=== PATIENT | female | born 1950 | race Caucasian/White ===

== ENCOUNTER → 2017-04-28 | Emergency (ER) | payer MEDICARE ==
[~2017-04-28] VITALS: Ht 162.5 cm; Wt 77.1 kg
[~2017-04-28] MED LIST: AMBIEN10 MG PO; BENICAR40 MG PO; CYMBALTA60 M1 PO; DIOVAN40 MG PO; ESTROGEN PO; FENOFIBRATE PO; LOMOTIL 0.025 M1 TA1 PO; PENTASA500 MG PO; PREDNISONE5 MG PO; PREDNISONE50 MG PO; VICODIN 5/500 505 MG PO; ZOFRAN ODT4 MG PO
[2017-04-28 07:28] VITALS: BP 156/71
[2017-04-28 08:32] LABS: BASO # 0.1 10*3/uL (0.0-0.1); BASO % 0.6 % (0.0-1.0); EOS # 0.3 10*3/uL (0.0-0.4); HEMATOCRIT 34.5 % (37.0-47.0); LYMPH # 3.1 10*3/uL (1.3-4.4); LYMPH % 35.8 % (27.0-41.0); MEAN CELL VOLUME 89.1 fl (81.0-99.0); MEAN CORPUSCULAR HGB 28.4 pg (27.0-31.0); MEAN CORPUSCULAR HGB CONC 31.9 g/dl (33.0-37.0); MEAN PLATELET VOLUME 8.8 fl (9.6-12.3); MONO # 0.6 10*3/uL (0.1-1.0); MONO % 7.3 % (3.0-9.0); NEUT # 4.5 10*3/uL (2.3-7.9); NEUT % 52.8 % (47.0-73.0); PLATELET COUNT AUTOMATED 388 10*3/uL (130-400); RED BLOOD COUNT 3.87 10*6/uL (4.10-5.10); RED CELL DISTRI WIDTH 13.8 % (0-14.5); WHITE BLOOD COUNT 8.5 10*3/uL (4.8-10.8)
[2017-04-28 08:44] LABS: INTERNATIONAL NORM RATIO 0.9 (2.0-3.5); PROTHROMBIN TIME 9.7 SECONDS (9.0-12.4)
[2017-04-28 09:02] LABS: ALBUMIN 3.8 gm/dl (3.1-4.5); ALKALINE PHOSPHATASE 41 U/L (45-117); BILIRUBIN, TOTAL 0.3 mg/dl (0.2-1.0); BUN 24 mg/dl (7-24); C-REACTIVE PROTEIN 0.49 MG/DL (0-0.3); CARBON DIOXIDE 27 mmol/L (21-32); CHLORIDE 101 mmol/L (98-107); CKMB 1.5 ng/ml (0.5-3.6); CPK 61 U/L (26-192); EST GLOM FILT AFRICAN AMERICAN 51 ml/min; GLUCOSE 101 mg/dL (65-99); MAGNESIUM 1.6 mg/dL (1.5-2.1); POTASSIUM 4.2 mmol/L (3.5-5.1); SGOT/AST 18 IU/L (3-35); SGPT/ALT 33 U/L (12-78); SODIUM 140 mmol/L (136-145)
[2017-04-28 09:03] LABS: TROPONIN I < 0.015 ng/ml (<0.045)
== END ==
LOC: ED 07:19
PROVIDERS: Emergency Medicine
DX: M54.12 Radiculopathy, cervical region (principal); R20.0 Anesthesia of skin; R51 Headache; R07.89 Other chest pain; E11.9 Type 2 diabetes mellitus without complications; I10 Essential (primary) hypertension; E78.5 Hyperlipidemia, unspecified; Z79.899 Other long term (current) drug therapy

== ENCOUNTER → 2017-06-04 | Outpatient (CLI) | payer MEDICARE ==
[2017-06-04 14:27] LABS: BILIRUBIN NEGATIVE (NEGATIVE); BLOOD NEGATIVE (NEGATIVE); CLARITY SL CLOUDY (CLEAR); COLOR YELLOW (YELLOW); GLUCOSE NEGATIVE (NEGATIVE); KETONE NEGATIVE (NEGATIVE); LEUKO ESTERASE NEGATIVE (NEGATIVE); NITRITE NEGATIVE (NEGATIVE); PROTEIN NEGATIVE (NEGATIVE); SPECIFIC GRAVITY <= 1.005 (1.005-1.030); UROBILINOGEN 0.2 E.U./dl (0.2-1.0)
[2017-06-04 14:29] LABS: BASO # 0.1 10*3/uL (0.0-0.1); BASO % 0.6 % (0.0-1.0); EOS # 0.2 10*3/uL (0.0-0.4); HEMATOCRIT 35.4 % (37.0-47.0); HEMOGLOBIN 11.1 g/dl (12.0-16.0); LYMPH # 2.9 10*3/uL (1.3-4.4); MEAN CELL VOLUME 88.7 fl (81.0-99.0); MEAN CORPUSCULAR HGB 27.8 pg (27.0-31.0); MEAN CORPUSCULAR HGB CONC 31.4 g/dl (33.0-37.0); MEAN PLATELET VOLUME 8.7 fl (9.6-12.3); MONO # 0.6 10*3/uL (0.1-1.0); MONO % 7.5 % (3.0-9.0); NEUT # 4.1 10*3/uL (2.3-7.9); NEUT % 52.4 % (47.0-73.0); PLATELET COUNT AUTOMATED 477 10*3/uL (130-400); RED BLOOD COUNT 3.99 10*6/uL (4.10-5.10); RED CELL DISTRI WIDTH 13.6 % (0-14.5); WHITE BLOOD COUNT 7.9 10*3/uL (4.8-10.8)
[2017-06-04 14:36] LABS: URINE TP/CRE RATIO 0.1 (<0.21)
[2017-06-04 14:38] LABS: BUN 16 mg/dl (7-24); CARBON DIOXIDE 30 mmol/L (21-32); CHLORIDE 98 mmol/L (98-107); EST GLOM FILT AFRICAN AMERICAN > 60 ml/min; GLUCOSE 100 mg/dL (65-99); PHOSPHOROUS 3.5 mg/dL (2.5-4.9); SODIUM 133 mmol/L (136-145)
[2017-06-04 14:47] LABS: BACTERIA 1+; EPITHELIAL CELLS 0-2; RBC 0-2 rbc/hpf (0-2); URINE REFLEX COMMENT NO (NO)
[2017-06-04 15:02] LABS: URINE OSMOLALITY 252 mOsm/kg (500-850)
[2017-06-04 15:39] LABS: VITAMIN D, 25-HYDROXY 40.7 ng/mL (30-100)
[2017-06-05 15:09] LABS: A/G RATIO 1.2 (0.7-1.7); ALBUMIN 3.7 g/dL (2.9-4.4); ALPHA-1-GLOBULIN 0.3 g/dL (0.0-0.4); BETA GLOBULIN 1.2 g/dL (0.7-1.3); GAMMA GLOBULIN 0.8 g/dL (0.4-1.8); GLOBULIN, TOTAL 3.1 g/dL (2.2-3.9); M-SPIKE Not Observed g/dL (Not Observed); TOTAL PROTEIN, SERUM 6.8 g/dL (6.0-8.5)
== END | disposition home or self-care (01) ==
LOC: LAB 13:42
PROVIDERS: Internal Medicine Nephrology
DX: E83.52 Hypercalcemia (principal); N17.9 Acute kidney failure, unspecified; Z79.899 Other long term (current) drug therapy

== ENCOUNTER 2017-08-05 21:28 | Emergency (ER) | payer MEDICARE ==
[~2017-08-05] VITALS: Ht 162.5 cm; Wt 86.2 kg
[2017-08-05 21:34] VITALS: BP 180/90
== END 2017-08-06 00:21 | disposition home or self-care (01) ==
LOC: ED 21:28
DX: G89.29 Other chronic pain (principal); M25.512 Pain in left shoulder; M19.112 Post-traumatic osteoarthritis, left shoulder

== ENCOUNTER → 2017-10-22 | Day surgery (SDC) | payer MEDICARE ==
[~2017-10-22] VITALS: Ht 162.5 cm; Wt 84.4 kg
[~2017-10-22] MED LIST changes: +METFORMIN500 MG PO
--- NOTE | ~2017-10-22 | O ---
[place], [place] OPERATIVE NOTE NAME: [facility] #: [id number] UNIT #: [id number] ROOM: DOCTOR: LISA LOPEZ MD BIRTHDATE: [birth year] DOS: 10/22/2017 PREOPERATIVE DIAGNOSIS: Cataract, right eye. POSTOPERATIVE DIAGNOSIS: Cataract, right eye. OPERATION: Extracapsular cataract extraction by phacoemulsification with posterior chamber intraocular lens implantation, right eye. ANESTHESIA: Monitored standby. OPERATIVE FINDINGS AND PROCEDURE: 2% Xylocaine topical anesthetic gel was applied to the eye in the preop area. The patient was taken to the operating room and prepped and draped in the standard fashion for sterile intraocular surgery. A time out procedure was performed verifying correct patient, correct site and corrects lens with Latricia Lopez M.D. The operating microscope was swung into position and the lid speculum was inserted. Using a Nella paracentesis blade, a paracentesis was made through clear cornea. Viscoelastic was used to fill the anterior chamber. Using a metal keratome a 2.4 mm self-sealing clear corneal cataract incision was made temporally at the limbus. Using a pre-bent 25 gauge cystotome needle, a standard continuous curvilinear capsulorrhexis was performed. The anterior capsule was removed with forceps. The lens nucleus was hydrodissected and phacoemulsified in the posterior chamber. Cortical material was removed with the irrigation aspiration hand piece and the posterior capsule was then polished with a curet under irrigation. The posterior chamber and capsular bag were filled with viscoelastic. A posterior chamber intraocular lens manufactured by: [employer], Model #[id number], and 24.0 diopters in strength were then inserted into the posterior chamber and within the capsular bag using the lens cartridge and injector system. Viscoelastic was removed using the irrigation aspiration handpiece. The anterior chamber was filled with balanced salt solution through the paracentesis. Both the paracentesis site and cataract incisions were hydrated with BSS and verified to be water-tight and self-sealing. Cefuroxime 1 mg/0.1 mL was injected into the anterior chamber through the paracentesis site. The incision checked to be water-tight using a Weck-Lashaun sponge. The integrity of the cataract wound and ocular tension were checked. Lid speculum and drapes were removed. The patient was transferred from the operating room to the recovery room in satisfactory condition. [place], [place] OPERATIVE NOTE NAME: [facility] UNIT #: [id number] ROOM: DOCTOR: LISA LOPEZ MD BIRTHDATE: [birth year] LISA LOPEZ MD CM:OPRECORD:OPERATIVE NOTE [id number] LISA LOPEZ MD 10/22/17 1028 interface
[2017-10-22 07:41] VITALS: BP 144/76
[2017-10-22 08:36] VITALS: BP 146/71
[2017-10-22 08:50] VITALS: BP 152/77
[2017-10-22 09:04] VITALS: BP 145/79
== END | disposition home or self-care (01) ==
LOC: SDC 10-17 14:00
DX: E11.36 Type 2 diabetes mellitus with diabetic cataract (principal); I10 Essential (primary) hypertension; F32.9 Major depressive disorder, single episode, unspecified; Z79.899 Other long term (current) drug therapy; Z88.8 Allergy status to other drugs, medicaments and biological substances; F41.9 Anxiety disorder, unspecified

== ENCOUNTER → 2017-12-03 | Day surgery (SDC) | payer MEDICARE ==
[~2017-12-03] VITALS: Ht 162.5 cm; Wt 86.2 kg
[~2017-12-03] MED LIST changes: +OMEPRAZOLE40 MG PO; +Percocet 325 MG1 TAB PO; +VALSARTAN-HCTZ1 EAC3 PO
--- NOTE | ~2017-12-03 | O ---
[place], [place] OPERATIVE NOTE NAME: [facility] #: [id number] UNIT #: [id number] ROOM: DOCTOR: LISA LOPEZ MD BIRTHDATE: [birth year] DOS: 12/03/2017 PREOPERATIVE DIAGNOSIS: Cataract, left eye. POSTOPERATIVE DIAGNOSIS: Cataract, left eye. OPERATION: Extracapsular cataract extraction by phacoemulsification with posterior chamber intraocular lens implantation, left eye. ANESTHESIA: Monitored standby. OPERATIVE FINDINGS AND PROCEDURE: 2% Xylocaine topical anesthetic gel was applied to the eye in the preop area. The patient was taken to the operating room and prepped and draped in the standard fashion for sterile intraocular surgery. A time out procedure was performed verifying correct patient, correct site and corrects lens with Latricia Lopez M.D. The operating microscope was swung into position and the lid speculum was inserted. Using a Nella paracentesis blade, a paracentesis was made through clear cornea. Viscoelastic was used to fill the anterior chamber. Using a metal keratome a 2.4 mm self-sealing clear corneal cataract incision was made temporally at the limbus. Using a pre-bent 25 gauge cystotome needle, a standard continuous curvilinear capsulorrhexis was performed. The anterior capsule was removed with forceps. The lens nucleus was hydrodissected and phacoemulsified in the posterior chamber. Cortical material was removed with the irrigation aspiration hand piece and the posterior capsule was then polished with a curet under irrigation. The posterior chamber and capsular bag were filled with viscoelastic. A posterior chamber intraocular lens manufactured by: [employer], Model #[id number], and 25.0 diopters in strength were then inserted into the posterior chamber and within the capsular bag using the lens cartridge and injector system. Viscoelastic was removed using the irrigation aspiration handpiece. The anterior chamber was filled with balanced salt solution through the paracentesis. Both the paracentesis site and cataract incisions were hydrated with BSS and verified to be water-tight and self-sealing. Cefuroxime 1 mg/0.1 mL was injected into the anterior chamber through the paracentesis site. The incision checked to be water-tight using a Weck-Lashaun sponge. The integrity of the cataract wound and ocular tension were checked. Lid speculum and drapes were removed. The patient was transferred from the operating room to the recovery room in satisfactory condition. [place], [place] OPERATIVE NOTE NAME: [facility]I [facility]UN[facility] UNIT #: [id number] ROOM: DOCTOR: LISA LOPEZ MD BIRTHDATE: [birth year] LISA LOPEZ MD CM:OPRECORD:OPERATIVE NOTE [id number] LISA LOPEZ MD 12/03/17 0948 interface
[2017-12-03 07:40] VITALS: BP 122/66
[2017-12-03 09:23] VITALS: BP 144/77
[2017-12-03 09:36] VITALS: BP 138/79
[2017-12-03 09:47] VITALS: BP 141/84
== END ==
LOC: SDC 11-21 09:30
DX: E11.36 Type 2 diabetes mellitus with diabetic cataract (principal); I10 Essential (primary) hypertension; K21.9 Gastro-esophageal reflux disease without esophagitis; F41.9 Anxiety disorder, unspecified; F32.9 Major depressive disorder, single episode, unspecified; Z98.51 Tubal ligation status; Z90.710 Acquired absence of both cervix and uterus; Z98.890 Other specified postprocedural states; Z79.84 Long term (current) use of oral hypoglycemic drugs; E78.00 Pure hypercholesterolemia, unspecified

== ENCOUNTER 2018-03-11 11:02 | Emergency (ER) | payer MEDICARE ==
[~2018-03-11] VITALS: Ht 162.5 cm; Wt 85.3 kg
[2018-03-11 11:40] LABS: BASO # 0.1 10*3/uL (0.0-0.1); BASO % 0.5 % (0.0-1.0); EOS # 0.2 10*3/uL (0.0-0.4); EOS % 1.9 % (1.0-4.0); HEMATOCRIT 38.5 % (37.0-47.0); HEMOGLOBIN 12.2 g/dl (12.0-16.0); LYMPH # 3.1 10*3/uL (1.3-4.4); LYMPH % 31.9 % (27.0-41.0); MEAN CELL VOLUME 85.4 fl (81.0-99.0); MEAN CORPUSCULAR HGB 27.1 pg (27.0-31.0); MEAN CORPUSCULAR HGB CONC 31.7 g/dl (33.0-37.0); MEAN PLATELET VOLUME 8.6 fl (9.6-12.3); MONO # 0.7 10*3/uL (0.1-1.0); MONO % 7.7 % (3.0-9.0); NEUT # 5.5 10*3/uL (2.3-7.9); NEUT % 57.7 % (47.0-73.0); PLATELET COUNT AUTOMATED 501 10*3/uL (130-400); RED BLOOD COUNT 4.51 10*6/uL (4.10-5.10); RED CELL DISTRI WIDTH 13.8 % (0-14.5); WHITE BLOOD COUNT 9.6 10*3/uL (4.8-10.8)
[2018-03-11 11:56] LABS: ALBUMIN 4.4 gm/dl (3.1-4.5); ALKALINE PHOSPHATASE 44 U/L (45-117); BUN 24 mg/dl (7-24); CHLORIDE 92 mmol/L (98-107); CREATININE 1.32 mg/dL (0.55-1.02); POTASSIUM 3.3 mmol/L (3.5-5.1); SGOT/AST 21 IU/L (3-35); SGPT/ALT 32 U/L (12-78); SODIUM 133 mmol/L (136-145)
[2018-03-11 11:57] LABS: TROPONIN I < 0.015 ng/ml (<0.045)
[2018-03-11 13:11] VITALS: BP 177/78
[2018-03-11] MEDS ORDERED: K-TAB20 MEQ PO (13:28)
== END 2018-03-11 13:38 | disposition home or self-care (01) ==
LOC: ED 11:02
PROVIDERS: Physician Assistant
DX: I10 Essential (primary) hypertension (principal); Z98.51 Tubal ligation status; Z96.642 Presence of left artificial hip joint; Z79.899 Other long term (current) drug therapy

== ENCOUNTER → 2018-03-26 | Outpatient (CLI) | payer MEDICARE ==
[~2018-03-26] MED LIST changes: +K-TAB20 MEQ PO
== END | disposition home or self-care (01) ==
LOC: MAMMO 02:51
DX: Z12.31 Encounter for screening mammogram for malignant neoplasm of breast (principal)

== ENCOUNTER → 2018-12-09 | Outpatient (CLI) | payer MEDICARE ==
[2018-12-09 17:21] LABS: BASO # 0.1 10*3/uL (0.0-0.1); BASO % 0.9 % (0.0-1.0); EOS # 0.3 10*3/uL (0.0-0.4); HEMATOCRIT 37.1 % (37.0-47.0); HEMOGLOBIN 11.7 g/dl (12.0-16.0); LYMPH # 3.5 10*3/uL (1.3-4.4); LYMPH % 37.9 % (27.0-41.0); MEAN CELL VOLUME 88.1 fl (81.0-99.0); MEAN CORPUSCULAR HGB 27.8 pg (27.0-31.0); MEAN CORPUSCULAR HGB CONC 31.5 g/dl (33.0-37.0); MEAN PLATELET VOLUME 9.4 fl (9.6-12.3); MONO # 0.7 10*3/uL (0.1-1.0); MONO % 7.8 % (3.0-9.0); NEUT # 4.6 10*3/uL (2.3-7.9); NEUT % 50.1 % (47.0-73.0); PLATELET COUNT AUTOMATED 485 10*3/uL (130-400); RED BLOOD COUNT 4.21 10*6/uL (4.10-5.10); RED CELL DISTRI WIDTH 14.8 % (0-14.5); WHITE BLOOD COUNT 9.3 10*3/uL (4.8-10.8)
== END | disposition home or self-care (01) ==
LOC: LAB 15:50
PROVIDERS: Orthopaedic Surgery
DX: M19.91 Primary osteoarthritis, unspecified site (principal); R53.83 Other fatigue; R53.81 Other malaise; Z79.899 Other long term (current) drug therapy

== ENCOUNTER → 2019-04-14 | Outpatient (CLI) | payer MEDICARE ==
[2019-04-14 08:07] LABS: BASO # 0.1 10*3/uL (0.0-0.1); BASO % 0.7 % (0.0-1.0); EOS # 0.3 10*3/uL (0.0-0.4); EOS % 3.9 % (1.0-4.0); HEMATOCRIT 37.8 % (37.0-47.0); HEMOGLOBIN 11.7 g/dl (12.0-16.0); LYMPH # 2.4 10*3/uL (1.3-4.4); LYMPH % 32.9 % (27.0-41.0); MEAN CELL VOLUME 88.7 fl (81.0-99.0); MEAN CORPUSCULAR HGB 27.5 pg (27.0-31.0); MEAN PLATELET VOLUME 9.2 fl (9.6-12.3); MONO # 0.6 10*3/uL (0.1-1.0); MONO % 8.4 % (3.0-9.0); NEUT # 3.9 10*3/uL (2.3-7.9); NEUT % 53.7 % (47.0-73.0); PLATELET COUNT AUTOMATED 473 10*3/uL (130-400); RED BLOOD COUNT 4.26 10*6/uL (4.10-5.10); WHITE BLOOD COUNT 7.3 10*3/uL (4.8-10.8)
[2019-04-14 08:32] LABS: ALBUMIN 4.1 gm/dl (3.1-4.5); CREATININE 1.4 mg/dL (0.55-1.02); POTASSIUM 4.5 mmol/L (3.5-5.1); TOTAL PROTEIN 7.8 gm/dL (6.4-8.2)
== END | disposition home or self-care (01) ==
LOC: LAB 07:22
PROVIDERS: Registered Nurse Flight
DX: E11.9 Type 2 diabetes mellitus without complications (principal); G89.29 Other chronic pain; E78.2 Mixed hyperlipidemia

== ENCOUNTER → 2019-06-16 | Outpatient (CLI) | payer MEDICARE | END | disposition home or self-care (01) | LOC: CARD 08:30 | DX: I11.9 Hypertensive heart disease without heart failure (principal); Z79.899 Other long term (current) drug therapy ==

== ENCOUNTER → 2019-09-02 | Outpatient (CLI) | payer OTHER ==
[2019-09-02 08:02] LABS: HEMATOCRIT 39.5 % (37.0-47.0); HEMOGLOBIN 12.2 g/dl (12.0-16.0); MEAN CELL VOLUME 87.2 fl (81.0-99.0); MEAN CORPUSCULAR HGB 26.9 pg (27.0-31.0); MEAN CORPUSCULAR HGB CONC 30.9 g/dl (33.0-37.0); RED BLOOD COUNT 4.53 10*6/uL (4.10-5.10); RED CELL DISTRI WIDTH 13.5 % (0-14.5); WHITE BLOOD COUNT 8.4 10*3/uL (4.8-10.8)
[2019-09-02 08:31] LABS: ALBUMIN 4.1 gm/dl (3.1-4.5); CREATININE 1.32 mg/dL (0.55-1.02); POTASSIUM 3.8 mmol/L (3.5-5.1); TOTAL PROTEIN 7.7 gm/dL (6.4-8.2)
[2019-09-02 08:36] LABS: THYROID STIM HORMONE (HS) 2.44 uIU/ml (0.358-4.75)
== END | disposition home or self-care (01) ==
LOC: LAB 07:04
PROVIDERS: Registered Nurse Flight
DX: I12.9 Hypertensive chronic kidney disease with stage 1 through stage 4 chronic kidney disease, or unspecified chronic kidney disease (principal); E11.22 Type 2 diabetes mellitus with diabetic chronic kidney disease; N18.3 Chronic kidney disease, stage 3 (moderate); R68.89 Other general symptoms and signs; E78.00 Pure hypercholesterolemia, unspecified

== ENCOUNTER → 2020-02-03 | Outpatient (CLI) | payer OTHER ==
[~2020-02-03] MED LIST changes: +ABILIFY2 MG PO; +AMBIEN10 M1 PO; -CYMBALTA60 M1 PO; +CYMBALTA60 MG PO; +DIOVAN HCT 3201 EACH PO; +LIPITOR20 MG PO; +METFORMIN HYD1000 MG PO; +METFORMIN HYDR500 MG PO; -METFORMIN500 MG PO; +PRILOSEC20 M1 PO; +REQUIP PO; +VICO75300 PO; +VITAMIN B12 PO; +VITAMIN D32000 UNI2 PO; +ZYRTEC10 M3 PO
== END ==
LOC: CARD 06:23
DX: R07.9 Chest pain, unspecified (principal); R42 Dizziness and giddiness

== ENCOUNTER 2020-08-12 17:49 | Emergency (ER) | payer OTHER ==
[2020-08-12 18:18] VITALS: BP 135/56
[2020-08-12] MEDS ORDERED: Motrin,Rufen400 MG PO (20:29)
[2020-08-12] MEDS ORDERED: NORCO 5-325 TA1 EACH PO (20:29)
[2020-08-12] MEDS ORDERED: PREDNISONE50 MG PO (20:29)
== END 2020-08-12 20:39 | disposition home or self-care (01) ==
LOC: ED 17:49
DX: M54.41 Lumbago with sciatica, right side (principal)

== ENCOUNTER → 2021-04-19 | Outpatient (CLI) | payer OTHER ==
[~2021-04-19] MED LIST changes: +Motrin,Rufen400 MG PO; +NORCO 5-325 TA1 EACH PO
== END | disposition home or self-care (01) ==
LOC: LAB 10:47
DX: E83.52 Hypercalcemia (principal)

== ENCOUNTER → 2021-07-17 | Outpatient (CLI) | payer OTHER, MEDICAID ==
[2021-07-17 11:15] LABS: HEMATOCRIT 40.9 % (37.0-47.0); MEAN CELL VOLUME 90.5 fl (81.0-99.0); MEAN CORPUSCULAR HGB 27.9 pg (27.0-31.0); MEAN CORPUSCULAR HGB CONC 30.8 g/dl (33.0-37.0); MEAN PLATELET VOLUME 8.9 fl (9.6-12.3); RED BLOOD COUNT 4.52 10*6/uL (4.10-5.10)
[2021-07-17 11:29] LABS: ALBUMIN 4.2 gm/dl (3.1-4.5); CREATININE 1.49 mg/dL (0.55-1.02); POTASSIUM 4.3 mmol/L (3.5-5.1); TOTAL PROTEIN 7.9 gm/dL (6.4-8.2)
[2021-07-17 13:26] LABS: VITAMIN D, 25-HYDROXY 37.9 ng/mL (30-100)
== END | disposition home or self-care (01) ==
LOC: LAB 10:54
PROVIDERS: ATTEND Family Medicine
DX: E11.9 Type 2 diabetes mellitus without complications (principal); E78.00 Pure hypercholesterolemia, unspecified; R53.83 Other fatigue; I10 Essential (primary) hypertension; E55.9 Vitamin D deficiency, unspecified

== ENCOUNTER 2021-10-08 09:52 | Emergency (ER) | payer OTHER, MEDICAID | END 2021-10-08 10:23 | disposition left against medical advice (07) | LOC: ED 09:52 | DX: Z53.21 Procedure and treatment not carried out due to patient leaving prior to being seen by health care provider (principal) ==

== ENCOUNTER 2021-10-09 17:58 | Emergency (ER) | payer OTHER, MEDICAID ==
[~2021-10-09] VITALS: Ht 162.5 cm; Wt 83.9 kg
[2021-10-09 19:34] VITALS: BP 145/74
== END 2021-10-09 22:32 | disposition home or self-care (01) ==
LOC: ED 17:58
DX: M54.50 Low back pain, unspecified (principal)

== ENCOUNTER → 2021-11-27 | Outpatient (CLI) | payer OTHER, MEDICAID ==
[2021-11-27 13:31] LABS: THYROXINE (T4) TOTAL 7.9 ug/dl (4.8-13.9)
[2021-11-27 13:36] LABS: THYROID STIM HORMONE (HS) 2.35 uIU/ml (0.358-4.75)
[2021-11-28 12:07] LABS: CREATININE,URINE 54.9 mg/dL (Not Estab.)
== END | disposition home or self-care (01) ==
LOC: LAB 12:46
PROVIDERS: ATTEND Family Medicine
DX: Z13.6 Encounter for screening for cardiovascular disorders (principal); I10 Essential (primary) hypertension; Z13.89 Encounter for screening for other disorder

== ENCOUNTER → 2021-11-29 | Outpatient (CLI) | payer OTHER, MEDICAID | END | disposition home or self-care (01) | LOC: LAB 11:07 | PROVIDERS: ATTEND Physical Medicine & Rehabilitation Sports Medicine | DX: A41.9 Sepsis, unspecified organism (principal); B95.62 Methicillin resistant Staphylococcus aureus infection as the cause of diseases classified elsewhere ==

== ENCOUNTER → 2021-12-20 | Outpatient (CLI) | payer OTHER, MEDICAID | END | disposition home or self-care (01) | LOC: LAB 06:59 | PROVIDERS: ATTEND Student in an Organized Health Care Education/Training Program | DX: Z11.59 Encounter for screening for other viral diseases (principal); Z22.322 Carrier or suspected carrier of Methicillin resistant Staphylococcus aureus ==

== ENCOUNTER 2022-06-24 19:18 | Emergency (ER) | payer OTHER, MEDICAID ==
[~2022-06-24] VITALS: Ht 160 cm; Wt 84.4 kg
[2022-06-24 20:12] VITALS: BP 134/58
[2022-06-24] MEDS ORDERED: PREDNISONE20 M1 PO (20:52)
[2022-06-24] MEDS ORDERED: CYCLOBENZAPRINE5 M3 PO (20:52)
== END 2022-06-24 21:09 | disposition home or self-care (01) ==
LOC: ED 19:18
DX: M54.41 Lumbago with sciatica, right side (principal); R60.0 Localized edema; Z98.890 Other specified postprocedural states; Z79.899 Other long term (current) drug therapy; Z98.51 Tubal ligation status; Z96.642 Presence of left artificial hip joint; Z90.710 Acquired absence of both cervix and uterus

== ENCOUNTER → 2022-06-25 | Outpatient (CLI) | payer OTHER, MEDICAID ==
[~2022-06-25] MED LIST changes: +CYCLOBENZAPRINE5 M3 PO; +PREDNISONE20 M1 PO
== END | disposition home or self-care (01) ==
LOC: US 15:07
PROVIDERS: ATTEND Emergency Medicine
DX: R60.9 Edema, unspecified (principal); M79.604 Pain in right leg

== ENCOUNTER 2022-08-12 16:13 | Emergency (ER) | payer OTHER, MEDICAID ==
[~2022-08-12] VITALS: Ht 160 cm; Wt 82.1 kg
[~2022-08-12 16:13] MED LIST changes: +CYMBALTA20 M1 PO; +FENOFIBRATE MI134 MG PO; +GABAPENTIN600 MG PO; +PERCOCET 10-321 EACH PO; +TRULICITY1.5 MG/0.5 SC; +XARE15TA PO
[2022-08-12 16:24] VITALS: BP 136/109
[2022-08-12 18:20] LABS: BASO # 0.1 10*3/uL (0.0-0.1); BASO % 0.6 % (0.0-1.0); EOS # 0.2 10*3/uL (0.0-0.4); EOS % 2.2 % (1.0-4.0); HEMATOCRIT 34.8 % (37.0-47.0); LYMPH # 2.4 10*3/uL (1.3-4.4); MEAN CELL VOLUME 89.5 fl (81.0-99.0); MEAN CORPUSCULAR HGB 27.8 pg (27.0-31.0); MEAN PLATELET VOLUME 8.8 fl (9.6-12.3); MONO # 0.8 10*3/uL (0.1-1.0); MONO % 9.8 % (3.0-9.0); NEUT # 4.8 10*3/uL (2.3-7.9); NEUT % 58.2 % (47.0-73.0); PLATELET COUNT AUTOMATED 465 10*3/uL (130-400); RED BLOOD COUNT 3.89 10*6/uL (4.10-5.10); RED CELL DISTRI WIDTH 15.3 % (0-14.5); WHITE BLOOD COUNT 8.3 10*3/uL (4.8-10.8)
[2022-08-12 18:30] LABS: INTERNATIONAL NORM RATIO 1.2 (2.0-3.5)
[2022-08-12 18:36] LABS: CREATININE 1.26 mg/dL (0.55-1.02); TOTAL PROTEIN 7.4 gm/dL (6.4-8.2)
== END 2022-08-12 22:53 | disposition home or self-care (01) ==
LOC: ED 16:13
PROVIDERS: Physician Assistant
DX: G89.29 Other chronic pain (principal); M79.604 Pain in right leg; Z98.51 Tubal ligation status; Z98.890 Other specified postprocedural states; Z79.899 Other long term (current) drug therapy

== ENCOUNTER → 2022-09-20 | Outpatient (CLI) | payer OTHER, MEDICAID | END | disposition home or self-care (01) | LOC: US 08-30 10:00 | PROVIDERS: ATTEND Family Medicine | DX: I82.451 Acute embolism and thrombosis of right peroneal vein (principal) ==

== ENCOUNTER → 2022-09-24 | Outpatient (CLI) | payer OTHER, MEDICAID | END | disposition home or self-care (01) | LOC: RAD 11:24 | PROVIDERS: ATTEND Family Medicine | DX: M19.071 Primary osteoarthritis, right ankle and foot (principal) ==

== ENCOUNTER 2022-11-29 18:23 | Emergency (ER) | payer OTHER, MEDICAID ==
[~2022-11-29] VITALS: Ht 160 cm; Wt 78.9 kg
[2022-11-29 18:40] VITALS: BP 115/72
[2022-11-29 19:07] LABS: BILIRUBIN Negative (Negative); BLOOD Negative (Negative); CLARITY Clear (Clear); COLOR Yellow (Yellow); GLUCOSE Negative (Negative); KETONE Trace (Negative); LEUKO ESTERASE 2+ (Negative); NITRITE Negative (Negative); PH 5.5 (4.5-8.0); SPECIFIC GRAVITY >= 1.030 (1.001-1.030)
[2022-11-29 19:27] LABS: RBC 0-2 rbc/hpf (0-2)
[2022-11-29 19:30] LABS: BASO % 0.3 % (0.0-1.0); EOS # 0.1 10*3/uL (0.0-0.4); EOS % 1.2 % (1.0-4.0); HEMATOCRIT 36.5 % (37.0-47.0); LYMPH # 3.2 10*3/uL (1.3-4.4); LYMPH % 30.5 % (27.0-41.0); MEAN CELL VOLUME 88.8 fl (81.0-99.0); MEAN CORPUSCULAR HGB 26.8 pg (27.0-31.0); MEAN CORPUSCULAR HGB CONC 30.1 g/dl (33.0-37.0); MONO # 0.9 10*3/uL (0.1-1.0); MONO % 8.3 % (3.0-9.0); NEUT # 6.1 10*3/uL (2.3-7.9); NEUT % 58.6 % (47.0-73.0); PLATELET COUNT AUTOMATED 503 10*3/uL (130-400); RED BLOOD COUNT 4.11 10*6/uL (4.10-5.10); RED CELL DISTRI WIDTH 16.3 % (0-14.5); WHITE BLOOD COUNT 10.4 10*3/uL (4.8-10.8)
[2022-11-29 19:45] LABS: ALKALINE PHOSPHATASE 38 U/L (46-116); BUN 28 mg/dl (9-23); CHLORIDE 105 mmol/L (98-107); POTASSIUM 3.7 mmol/L (3.4-5.1); SGPT/ALT 12 U/L (10-49); TOTAL PROTEIN 6.2 gm/dL (6.0-8.0)
[2022-11-29] MEDS ORDERED: CIPRO500 MG PO (22:00)
== END 2022-11-29 22:04 | disposition home or self-care (01) ==
LOC: ED 18:23
PROVIDERS: Nurse Practitioner Family
DX: N17.9 Acute kidney failure, unspecified (principal); Z98.890 Other specified postprocedural states; F10.90 Alcohol use, unspecified, uncomplicated

== ENCOUNTER → 2023-01-31 | Outpatient (CLI) | payer OTHER, MEDICAID ==
[~2023-01-31] MED LIST changes: +CIPRO500 MG PO
== END | disposition home or self-care (01) ==
LOC: US 09:00
PROVIDERS: ATTEND Orthopaedic Surgery
DX: M71.21 Synovial cyst of popliteal space [Baker], right knee (principal); M79.661 Pain in right lower leg; M79.671 Pain in right foot

== ENCOUNTER → 2023-02-03 | Outpatient (CLI) | payer OTHER, MEDICAID | END | disposition home or self-care (01) | LOC: RAD 01:35 | PROVIDERS: ATTEND Family Medicine | DX: Z13.820 Encounter for screening for osteoporosis (principal); Z78.0 Asymptomatic menopausal state ==

== ENCOUNTER 2023-02-14 12:40 | Emergency (ER) | payer OTHER, MEDICAID ==
[~2023-02-14] VITALS: Ht 160 cm; Wt 79.8 kg
[2023-02-14 13:22] LABS: BASO % 0.3 % (0.0-1.0); EOS # 0.1 10*3/uL (0.0-0.4); HEMATOCRIT 40.8 % (37.0-47.0); LYMPH # 2.7 10*3/uL (1.3-4.4); LYMPH % 29.6 % (27.0-41.0); MEAN CELL VOLUME 89.5 fl (81.0-99.0); MEAN CORPUSCULAR HGB 27.4 pg (27.0-31.0); MEAN CORPUSCULAR HGB CONC 30.6 g/dl (33.0-37.0); MEAN PLATELET VOLUME 8.9 fl (9.6-12.3); MONO # 0.7 10*3/uL (0.1-1.0); MONO % 7.9 % (3.0-9.0); NEUT # 5.5 10*3/uL (2.3-7.9); NEUT % 60.9 % (47.0-73.0); PLATELET COUNT AUTOMATED 363 10*3/uL (130-400); RED BLOOD COUNT 4.56 10*6/uL (4.10-5.10); RED CELL DISTRI WIDTH 14.6 % (0-14.5)
[2023-02-14 13:43] LABS: POTASSIUM 3.7 mmol/L (3.4-5.1); TOTAL PROTEIN 7.1 gm/dL (6.0-8.0)
[2023-02-14 14:29] LABS: BILIRUBIN Negative (Negative); BLOOD Negative (Negative); CLARITY Clear (Clear); COLOR Yellow (Yellow); GLUCOSE Negative (Negative); KETONE Negative (Negative); LEUKO ESTERASE Negative (Negative); NITRITE Negative (Negative); PH 6.5 (4.5-8.0); SPECIFIC GRAVITY 1.015 (1.001-1.030); UROBILINOGEN 0.2 E.U./dl (0.0-1.0)
[2023-02-14 15:14] LABS: RBC 0-2 rbc/hpf (0-2); WBC 0-2 wbc/hpf (0-5)
[2023-02-14 15:18] VITALS: BP 138/62
[2023-02-14] MEDS ORDERED: HYDROCODONE-AC1 EAC1 PO (17:29)
== END 2023-02-14 17:41 | disposition home or self-care (01) ==
LOC: ED 12:40
PROVIDERS: Physician Assistant
DX: S20.212A Contusion of left front wall of thorax, initial encounter (principal); E11.9 Type 2 diabetes mellitus without complications; I10 Essential (primary) hypertension; Z79.899 Other long term (current) drug therapy; Z98.51 Tubal ligation status; W18.39XA Other fall on same level, initial encounter; Y93.89 Activity, other specified; Y92.89 Other specified places as the place of occurrence of the external cause; Y99.8 Other external cause status

== ENCOUNTER → 2023-03-04 | Outpatient (CLI) | payer OTHER, MEDICAID ==
[~2023-03-04] MED LIST changes: +HYDROCODONE-AC1 EAC1 PO
== END | disposition home or self-care (01) ==
LOC: LAB 09:43
PROVIDERS: ATTEND Family Medicine
DX: Z11.59 Encounter for screening for other viral diseases (principal); I10 Essential (primary) hypertension; R60.9 Edema, unspecified

== ENCOUNTER → 2024-02-11 | Outpatient (CLI) | payer OTHER, MEDICAID ==
[2024-02-11 14:32] LABS: BILIRUBIN Negative (Negative); BLOOD Negative (Negative); CLARITY Clear (Clear); COLOR Yellow (Yellow); GLUCOSE Negative (Negative); KETONE Negative (Negative); LEUKO ESTERASE Trace (Negative); NITRITE Negative (Negative); UROBILINOGEN 0.2 E.U./dl (0.0-1.0)
[2024-02-11 14:33] LABS: BASO % 0.4 % (0.0-1.0); EOS # 0.1 10*3/uL (0.0-0.4); EOS % 1.3 % (1.0-4.0); HEMATOCRIT 36.5 % (37.0-47.0); LYMPH # 2.2 10*3/uL (1.3-4.4); LYMPH % 31.8 % (27.0-41.0); MEAN CELL VOLUME 90.1 fl (81.0-99.0); MEAN CORPUSCULAR HGB 27.4 pg (27.0-31.0); MEAN CORPUSCULAR HGB CONC 30.4 g/dl (33.0-37.0); MEAN PLATELET VOLUME 8.7 fl (9.6-12.3); MONO # 0.6 10*3/uL (0.1-1.0); MONO % 8.6 % (3.0-9.0); NEUT % 57.8 % (47.0-73.0); PLATELET COUNT AUTOMATED 390 10*3/uL (130-400); RED BLOOD COUNT 4.05 10*6/uL (4.10-5.10); RED CELL DISTRI WIDTH 14.7 % (0-14.5); WHITE BLOOD COUNT 6.9 10*3/uL (4.8-10.8)
[2024-02-11 14:44] LABS: BACTERIA 1+; MUCOUS 1+; RBC 0-2 rbc/hpf (0-2)
[2024-02-11 15:04] LABS: POTASSIUM 4.5 mmol/L (3.4-5.1)
[2024-02-11 15:06] LABS: VITAMIN D, 25-HYDROXY 33.8 ng/mL (30-100)
== END | disposition home or self-care (01) ==
LOC: LAB 14:10
PROVIDERS: ATTEND Nurse Practitioner Family
DX: E11.22 Type 2 diabetes mellitus with diabetic chronic kidney disease (principal); N18.30 Chronic kidney disease, stage 3 unspecified; N25.81 Secondary hyperparathyroidism of renal origin; D63.1 Anemia in chronic kidney disease

== ENCOUNTER → 2024-03-09 | Outpatient (CLI) | payer OTHER, MEDICAID | END | disposition home or self-care (01) | LOC: LAB 14:46 | PROVIDERS: ATTEND Family Medicine | DX: R10.32 Left lower quadrant pain (principal); D50.9 Iron deficiency anemia, unspecified; Z96.642 Presence of left artificial hip joint ==

== ENCOUNTER 2024-04-10 18:37 | Emergency (ER) | payer OTHER, MEDICAID ==
[~2024-04-10] VITALS: Ht 160 cm; Wt 74.4 kg
[2024-04-10 18:51] VITALS: BP 143/62
[2024-04-10] MEDS ORDERED: MORPHINE Sulfate 2 MG/ML SYR IM ONE (19:05)
[2024-04-10] MEDS ORDERED: Dexamethasone Sodium Phospha 20 MG/5 ML VIAL IM ONE (19:05)
[2024-04-10] MEDS ORDERED: CYCLOBENZAPRINE5 M3 PO (21:09)
== END 2024-04-10 21:20 | disposition home or self-care (01) ==
LOC: ED 18:37
DX: M54.50 Low back pain, unspecified (principal); E11.9 Type 2 diabetes mellitus without complications; F32.A Depression, unspecified; I10 Essential (primary) hypertension; E78.5 Hyperlipidemia, unspecified; M19.90 Unspecified osteoarthritis, unspecified site; F41.9 Anxiety disorder, unspecified; K21.9 Gastro-esophageal reflux disease without esophagitis; E78.00 Pure hypercholesterolemia, unspecified; Z98.890 Other specified postprocedural states; Z98.51 Tubal ligation status

== ENCOUNTER 2024-04-17 18:39 | Emergency (ER) | payer OTHER, MEDICAID ==
[~2024-04-17] VITALS: Ht 160 cm; Wt 74.4 kg
[2024-04-17 19:04] VITALS: BP 122/60
[2024-04-17] MEDS ORDERED: Acetaminophen/Oxycodone 5 MG/325 MG TABLET PO ONE (19:20)
[2024-04-17] MEDS ORDERED: SODIUM CHLORIDE 0.9% 1,000 ML IV ONE (19:20)
[2024-04-17 19:27] LABS: BASO % 0.4 % (0.0-1.0); EOS # 0.1 10*3/uL (0.0-0.4); EOS % 1.6 % (1.0-4.0); HEMATOCRIT 34.7 % (37.0-47.0); LYMPH # 2.9 10*3/uL (1.3-4.4); LYMPH % 39.1 % (27.0-41.0); MEAN CELL VOLUME 95.6 fl (81.0-99.0); MEAN CORPUSCULAR HGB 29.2 pg (27.0-31.0); MEAN CORPUSCULAR HGB CONC 30.5 g/dl (33.0-37.0); MEAN PLATELET VOLUME 8.2 fl (9.6-12.3); MONO # 0.9 10*3/uL (0.1-1.0); MONO % 11.6 % (3.0-9.0); NEUT # 3.5 10*3/uL (2.3-7.9); NEUT % 46.9 % (47.0-73.0); PLATELET COUNT AUTOMATED 343 10*3/uL (130-400); RED BLOOD COUNT 3.63 10*6/uL (4.10-5.10); RED CELL DISTRI WIDTH 15.7 % (0-14.5); WHITE BLOOD COUNT 7.5 10*3/uL (4.8-10.8)
[2024-04-17 19:44] LABS: ALKALINE PHOSPHATASE 31 U/L (46-116); BUN 31 mg/dl (9-23); CHLORIDE 103 mmol/L (98-107); LIPASE 36 U/L (12-53); POTASSIUM 3.8 mmol/L (3.4-5.1); SGPT/ALT < 7 U/L (5-49); TOTAL PROTEIN 6.2 gm/dL (6.0-8.0)
[2024-04-17 20:52] LABS: BILIRUBIN Negative (Negative); BLOOD Negative (Negative); CLARITY Clear (Clear); COLOR Yellow (Yellow); GLUCOSE Negative (Negative); KETONE Trace (Negative); LEUKO ESTERASE 1+ (Negative); NITRITE Negative (Negative); UROBILINOGEN 0.2 E.U./dl (0.0-1.0)
[2024-04-17 21:07] LABS: BACTERIA 1+
[2024-04-17] MEDS ORDERED: CIPRO500 MG PO (23:30)
[2024-04-17] MEDS ORDERED: Ciprofloxacin Hydrochloride 500 MG TAB PO ONE (23:45)
== END 2024-04-17 23:55 | disposition home or self-care (01) ==
LOC: ED 18:39
PROVIDERS: Internal Medicine
DX: N39.0 Urinary tract infection, site not specified (principal); I10 Essential (primary) hypertension; F41.9 Anxiety disorder, unspecified; K21.9 Gastro-esophageal reflux disease without esophagitis; F32.A Depression, unspecified; E78.00 Pure hypercholesterolemia, unspecified; Z98.890 Other specified postprocedural states

== ENCOUNTER → 2024-08-20 | Outpatient (CLI) | payer OTHER, MEDICAID ==
[2024-08-20 16:26] LABS: BILIRUBIN Negative (Negative); BLOOD Negative (Negative); CLARITY Clear (Clear); COLOR Yellow (Yellow); GLUCOSE Negative (Negative); KETONE Negative (Negative); LEUKO ESTERASE Negative (Negative); NITRITE Negative (Negative); UROBILINOGEN 0.2 E.U./dl (0.0-1.0)
[2024-08-20 16:27] LABS: BASO % 0.4 % (0.0-1.0); EOS # 0.1 10*3/uL (0.0-0.4); EOS % 1.1 % (1.0-4.0); HEMATOCRIT 37.1 % (37.0-47.0); LYMPH # 2.7 10*3/uL (1.3-4.4); LYMPH % 34.6 % (27.0-41.0); MEAN CELL VOLUME 93.9 fl (81.0-99.0); MEAN CORPUSCULAR HGB 29.4 pg (27.0-31.0); MEAN CORPUSCULAR HGB CONC 31.3 g/dl (33.0-37.0); MEAN PLATELET VOLUME 8.7 fl (9.6-12.3); MONO # 0.7 10*3/uL (0.1-1.0); MONO % 8.8 % (3.0-9.0); NEUT # 4.3 10*3/uL (2.3-7.9); NEUT % 54.7 % (47.0-73.0); PLATELET COUNT AUTOMATED 395 10*3/uL (130-400); RED BLOOD COUNT 3.95 10*6/uL (4.10-5.10); RED CELL DISTRI WIDTH 13.1 % (0-14.5); WHITE BLOOD COUNT 7.9 10*3/uL (4.8-10.8)
[2024-08-20 16:32] LABS: URINE CREATININE RANDOM 59.38 mg/dL
[2024-08-20 16:50] LABS: POTASSIUM 4.1 mmol/L (3.4-5.1)
[2024-08-20 16:53] LABS: VITAMIN D, 25-HYDROXY 29.9 ng/mL (30-100)
== END | disposition home or self-care (01) ==
LOC: LAB 15:56
PROVIDERS: ATTEND Nurse Practitioner Family
DX: E55.9 Vitamin D deficiency, unspecified (principal); N18.30 Chronic kidney disease, stage 3 unspecified; N25.81 Secondary hyperparathyroidism of renal origin; D63.1 Anemia in chronic kidney disease

== ENCOUNTER 2024-12-12 00:25 | Emergency (ER) | payer OTHER, MEDICAID ==
[~2024-12-12] VITALS: Ht 162.5 cm; Wt 81.6 kg
[2024-12-12 01:01] VITALS: BP 168/82
[2024-12-12] MEDS ORDERED: MG-AL HYDROXIDE/SIMETICONE 30 ML UDC PO STA (01:09)
[2024-12-12] MEDS ORDERED: Dicyclomine Hydrochloride 20 MG/10 ML OSYR PO STA (01:09)
[2024-12-12] MEDS ORDERED: Lidocaine Hydrochloride 15 ML UDC PO STA (01:09)
[2024-12-12 01:30] LABS: BASO % 0.5 % (0.0-1.0); EOS # 0.1 10*3/uL (0.0-0.4); HEMATOCRIT 33.6 % (37.0-47.0); MEAN CELL VOLUME 93.6 fl (81.0-99.0); MEAN PLATELET VOLUME 8.3 fl (9.6-12.3); MONO # 0.7 10*3/uL (0.1-1.0); MONO % 13.3 % (3.0-9.0); NEUT % 54.5 % (47.0-73.0); PLATELET COUNT AUTOMATED 287 10*3/uL (130-400); RED BLOOD COUNT 3.59 10*6/uL (4.10-5.10); RED CELL DISTRI WIDTH 13.6 % (0-14.5); WHITE BLOOD COUNT 5.5 10*3/uL (4.8-10.8)
[2024-12-12 01:50] LABS: POTASSIUM 3.8 mmol/L (3.4-5.1); TOTAL PROTEIN 6.2 gm/dL (6.0-8.0)
[2024-12-12] MEDS ORDERED: ACID REDUCER10 MG PO (04:06)
== END 2024-12-12 04:09 | disposition home or self-care (01) ==
LOC: ED 00:25
PROVIDERS: Internal Medicine
DX: K21.9 Gastro-esophageal reflux disease without esophagitis (principal); R11.2 Nausea with vomiting, unspecified; I10 Essential (primary) hypertension; F41.9 Anxiety disorder, unspecified; F32.A Depression, unspecified; E11.9 Type 2 diabetes mellitus without complications; E78.00 Pure hypercholesterolemia, unspecified; Z98.890 Other specified postprocedural states

== ENCOUNTER 2025-03-18 09:50 | Emergency (ER) | payer OTHER, MEDICAID ==
[~2025-03-18] VITALS: Ht 160 cm; Wt 73.5 kg
[~2025-03-18 09:50] MED LIST changes: +ACID REDUCER10 MG PO
[2025-03-18 09:54] VITALS: BP 142/66
[2025-03-18] MEDS ORDERED: Acetaminophen/Oxycodone 5 MG/325 MG TABLET PO ONE (09:55)
[2025-03-18] MEDS ORDERED: Tdap Vaccine 0.5 ML SYR (Adult Vaccine) IM ONE (09:55)
[2025-03-18] MEDS ORDERED: TRAMADOL HCL50 MG PO (10:55)
== END 2025-03-18 11:15 | disposition home or self-care (01) ==
LOC: ED 09:50
DX: M25.552 Pain in left hip (principal); M25.562 Pain in left knee; M25.572 Pain in left ankle and joints of left foot; M79.605 Pain in left leg; M25.511 Pain in right shoulder; E11.9 Type 2 diabetes mellitus without complications; I10 Essential (primary) hypertension; E78.5 Hyperlipidemia, unspecified; Z79.899 Other long term (current) drug therapy; Z98.890 Other specified postprocedural states; Z96.642 Presence of left artificial hip joint; V48.9XXA Unspecified car occupant injured in noncollision transport accident in traffic accident, initial encounter; Y93.I9 Activity, other involving external motion; Y92.488 Other paved roadways as the place of occurrence of the external cause; Y99.8 Other external cause status

== ENCOUNTER → 2025-04-06 | Outpatient (CLI) | payer OTHER, MEDICAID ==
[~2025-04-06] MED LIST changes: +TRAMADOL HCL50 MG PO
[2025-04-06 15:22] LABS: BILIRUBIN Negative (Negative); BLOOD Negative (Negative); CLARITY Clear (Clear); COLOR Yellow (Yellow); GLUCOSE Negative (Negative); KETONE Trace (Negative); LEUKO ESTERASE 1+ (Negative); NITRITE Negative (Negative); PH 5.5 (4.5-8.0); SPECIFIC GRAVITY 1.025 (1.001-1.030)
[2025-04-06 15:23] LABS: BASO % 0.6 % (0.0-1.0); EOS # 0.1 10*3/uL (0.0-0.4); EOS % 1.3 % (1.0-4.0); HEMATOCRIT 37.2 % (37.0-47.0); MEAN CELL VOLUME 95.1 fl (81.0-99.0); MEAN CORPUSCULAR HGB 29.4 pg (27.0-31.0); MEAN CORPUSCULAR HGB CONC 30.9 g/dl (33.0-37.0); MEAN PLATELET VOLUME 8.5 fl (9.6-12.3); MONO # 0.4 10*3/uL (0.1-1.0); NEUT # 3.7 10*3/uL (2.3-7.9); NEUT % 70.1 % (47.0-73.0); PLATELET COUNT AUTOMATED 439 10*3/uL (130-400); RED BLOOD COUNT 3.91 10*6/uL (4.10-5.10); RED CELL DISTRI WIDTH 13.2 % (0-14.5); WHITE BLOOD COUNT 5.3 10*3/uL (4.8-10.8)
[2025-04-06 15:52] LABS: VITAMIN D, 25-HYDROXY 44.6 ng/mL (30-100)
[2025-04-06 16:13] LABS: MUCOUS 1+
== END | disposition home or self-care (01) ==
LOC: LAB 15:00
PROVIDERS: ATTEND Nurse Practitioner Family
DX: N18.30 Chronic kidney disease, stage 3 unspecified (principal); D63.1 Anemia in chronic kidney disease; N25.81 Secondary hyperparathyroidism of renal origin; E55.9 Vitamin D deficiency, unspecified

== ENCOUNTER 2025-08-07 08:31 | Emergency (ER) | payer OTHER, MEDICAID ==
[~2025-08-07] VITALS: Ht 160 cm; Wt 72.6 kg
[2025-08-07 08:46] VITALS: BP 136/67
[2025-08-07] MEDS ORDERED: LIDOCAINE 1 EA PATCH T ONE (09:00)
[2025-08-07] MEDS ORDERED: PERCOCET 10-321 EACH PO (09:51)
== END 2025-08-07 10:20 | disposition home or self-care (01) ==
LOC: ED 08:31
DX: S46.911A Strain of unspecified muscle, fascia and tendon at shoulder and upper arm level, right arm, initial encounter (principal); I10 Essential (primary) hypertension; F41.9 Anxiety disorder, unspecified; F32.A Depression, unspecified; K21.9 Gastro-esophageal reflux disease without esophagitis; E11.9 Type 2 diabetes mellitus without complications; E78.00 Pure hypercholesterolemia, unspecified; Z98.890 Other specified postprocedural states; X50.9XXA Other and unspecified overexertion or strenuous movements or postures, initial encounter; Y93.89 Activity, other specified; Y92.89 Other specified places as the place of occurrence of the external cause; Y99.8 Other external cause status

== ENCOUNTER → 2025-09-12 | Outpatient (CLI) | payer OTHER, MEDICAID ==
[2025-09-12 13:45] LABS: BASO # 0.0 10*3/uL (0.0-0.1); BASO % 0.4 % (0.0-1.0); EOS # 0.1 10*3/uL (0.0-0.4); EOS % 1.3 % (1.0-4.0); MEAN CELL VOLUME 97.7 fl (81.0-99.0); MEAN CORPUSCULAR HGB 30.6 pg (27.0-31.0); MEAN PLATELET VOLUME 8.2 fl (9.6-12.3); MONO # 0.6 10*3/uL (0.1-1.0); MONO % 11.0 % (3.0-9.0); NEUT # 3.5 10*3/uL (2.3-7.9); NEUT % 63.2 % (47.0-73.0); NUCLEATED RED BLOOD CELL 0.0 % (0.0-0.0); NUCLEATED RED BLOOD CELL 0.0 10*3/uL (0.0-0.0); PLATELET COUNT AUTOMATED 401 10*3/uL (130-400); RED CELL DISTRI WIDTH 12.7 % (0-14.5)
[2025-09-12 14:06] LABS: BILIRUBIN Negative (Negative); BLOOD Negative (Negative); CLARITY Clear (Clear); COLOR Yellow (Yellow); KETONE Negative (Negative); NITRITE Negative (Negative); PH 6.0 (4.5-8.0); SPECIFIC GRAVITY 1.020 (1.001-1.030); UROBILINOGEN 0.0 E.U./dl (0.0-1.0)
[2025-09-12 14:07] LABS: BACTERIA 1+; EPITHELIAL CELLS 0-2; LEUKO ESTERASE 1+ (Negative); RBC 0-2 rbc/hpf (0-2); WBC 21-30 wbc/hpf (0-5)
[2025-09-12 14:08] LABS: BUN 28.0 mg/dl (9-23)
[2025-09-12 14:11] LABS: VITAMIN D, 25-HYDROXY 48.3 ng/mL (30-100)
== END | disposition home or self-care (01) ==
LOC: LAB 13:07
PROVIDERS: ATTEND Nurse Practitioner Family
DX: N25.81 Secondary hyperparathyroidism of renal origin (principal); N18.30 Chronic kidney disease, stage 3 unspecified; D63.1 Anemia in chronic kidney disease; E55.9 Vitamin D deficiency, unspecified; Z79.899 Other long term (current) drug therapy